=== PATIENT | female | born 1950 | race Two or more races ===

== ENCOUNTER 2019-12-06 08:34 | Outpatient (CLI) | payer OTHER | END 2019-12-06 08:41 | disposition home or self-care (01) | LOC: SONOGRAMA 08:34 | PROVIDERS: ATTEND Pathology Anatomic Pathology & Clinical Pathology | DX: E04.1 Nontoxic single thyroid nodule (principal) ==

== ENCOUNTER 2022-02-01 16:22 | Outpatient (CLI) | payer OTHER | END 2022-02-01 16:25 | disposition home or self-care (01) | LOC: SONOGRAMA 16:22 | PROVIDERS: ATTEND Pathology Anatomic Pathology & Clinical Pathology | DX: E04.1 Nontoxic single thyroid nodule (principal) ==